=== PATIENT | male | born 1970 | race Two or more races ===

== ENCOUNTER 2021-02-12 08:53 | Emergency (ER) | payer OTHER ==
[~2021-02-12] VITALS: Ht 167.6 cm; Wt 72.6 kg
[2021-02-12 09:30] VITALS: BP 130/88
== END 2021-02-12 11:04 | disposition home or self-care (01) ==
LOC: ER 08:53
DX: T16.1XXA Foreign body in right ear, initial encounter (principal); W22.8XXA Striking against or struck by other objects, initial encounter; Y93.89 Activity, other specified; Y92.89 Other specified places as the place of occurrence of the external cause; Y99.8 Other external cause status
CPT/HCPCS: 69200